=== PATIENT | female | born 1955 | race American Indian/Alaskan Native ===

== ENCOUNTER 2020-02-28 18:46 | Emergency (ER) | payer MEDICARE ==
--- NOTE | 2020-02-28 19:59 | Emergency Department Report ---
Blank Doc - Documentation Documentation: This is a 64-year-old female that presents with acute psychosis. Has been hav ing no sleep, hallucinations. Denies any SI/HI. Has not been taking any medications. This initial assessment/diagnostic orders/clinical plan/treatment(s) is/are subject to change based on patient's health status, clinical progression and re- assessment by fellow clinical providers in the ED. Further treatment and workup at subsequent clinical providers discretion. Patient/guardians urged not to elope from the ED as their condition may be serious if not clinically assessed and managed. Initial orders include: 1- Patient sent to MAIN ED for further evaluation and treatment 2- security operations analyst was notified to have patient be brought back [facility]. 3- RN was notified to keep patient as close range and observation until room available 4- Patient presents with substantial risk of imminent harm to self, appears to be so unable to care for his/her own physical health and safety as to create an imminently life-endangering crisis, and has committed/expressed life endangering crisis to self. Due to this and other complaints, patient is put on psych hold.
[2020-02-28 20:43] LABS: Hematocrit 37.1 % (30.3-42.9); Mean Corpuscular HGB Conc 32 % (30-34); Mean Corpuscular Volume 80 fl (79-97); Platelet Count 307 K/mm3 (140-440); Red Blood Count 4.64 M/mm3 (3.65-5.03); Red Cell Distribution Width 14.7 % (13.2-15.2)
[2020-02-28 20:57] LABS: BUN/Creatinine Ratio 20; Blood Urea Nitrogen 16 mg/dL (7-17); Calcium 9.8 mg/dL (8.4-10.2); Hemolysis Index 4
[2020-02-28 21:16] LABS: Total Cells Counted 100
[2020-02-28 21:17] LABS: Anisocytosis 1+; Hypochromasia 1+
[2020-02-28] MEDS ORDERED: diphenhydrAMINE 50 MG/ML VIAL IM STA (23:08)
[2020-02-28] MEDS: LORazepam 2 MG/ML VIAL IM PRN (23:19)
[2020-02-29] MEDS: HALOPERIDOL LACTATE 5 MG/1 ML INJ IM PRN ×2 (00:33→14:06)
--- NOTE | 2020-02-29 02:08 | Emergency Department Report ---
ED General Adult HPI - General Chief complaint: Psych Stated complaint: PHONG ANDERSON PUI?: No Time Seen by Provider: 02/28/20 19:58 Source: patient, RN notes reviewed Mode of arrival: Wheelchair Limitations: Other (Acute psychosis) - History of Present Illness Initial comments: The patient is a 64-year-old female. She appears to have a history of schizophrenia. She was reportedly brought to the hospital by her son for psychiatric decompensation. The patient herself is acutely psychotic, yelling and screaming nonsensically. She is not able to describe the qualitative nature of her symptoms, exacerbating, or relieving factors. As per her son, who reported this to nursing team, patient is out of medications, has not slept in 2 weeks, and has been hyperverbal. Patient acutely psychotic, not able to describe the qualitative nature of her symptoms, exacerbating, or relieving factors, or radiation thereof. Currently, not accompanied by friends or family at this time for additional information or collateral information. -: week(s) Quality: other Consistency: other Improves with: other Worsens with: other Associated Symptoms: other - Related Data Home Medications Medication Instructions Recorded Confirmed Last Taken Divalproex ER [DepaKOTE ER] 500 mg PO BID 02/29/20 03/02/20 Unknown Metoprolol Xl 25 mg PO DAILY 03/02/20 03/02/20 Unknown Allergies Allergy/AdvReac Type Severity Reaction Status Date / Time No Known Allergies Allergy Unverified 02/29/20 00:57 ED Review of Systems ROS: Stated complaint: PHONG ANDERSON Other details as noted in HPI Comment: Unobtainable due to pts medical conditions ED Past Medical Hx - Past Medical History Previous Medical History?: Yes Hx Psychiatric Treatment: Yes (Schizophrenia, BIPOLAR) - Medications Home Medications: Home Medications Medication Instructions Recorded Confirmed Last Taken Type Divalproex ER [DepaKOTE ER] 500 mg PO BID 02/29/20 03/02/20 Unknown History Metoprolol Xl 25 mg PO DAILY 03/02/20 03/02/20 Unknown History ED Physical Exam - General Limitations: Other (Patient acutely agitated, hyperverbal, nonsensical thought process, word salad.) General appearance: alert, anxious, obese - Head Head exam: Present: atraumatic, normocephalic - Eye Eye exam: Present: normal appearance, EOMI - ENT ENT exam: Present: normal exam, normal orophraynx, mucous membranes moist, normal external ear exam - Neck Neck exam: Present: normal inspection, full ROM. Absent: tenderness, me ningismus - Respiratory Respiratory exam: Present: normal lung sounds bilaterally. Absent: respiratory distress - Cardiovascular Cardiovascular Exam: Present: regular rate, normal rhythm, normal heart sounds. Absent: bradycardia, tachycardia, irregular rhythm, systolic murmur, diastolic murmur, rubs, gallop - GI/Abdominal GI/Abdominal exam: Present: soft. Absent: distended, tenderness, guarding, rebound, rigid, pulsatile mass - Extremities Exam Extremities exam: Present: normal inspection, full ROM, other (2+ pulses noted in the bilateral upper and lower extremities. There is no palpable cord. negative Homans sign. Muscular compartments are soft. The pelvis is stable.). Absent: pedal edema, calf tenderness - Back Exam Back exam: Present: normal inspection, full ROM. Absent: tenderness, CVA tenderness (R), CVA tenderness (L), paraspinal tenderness, vertebral tenderness - Neurological Exam Neurological exam: Present: other (The patient is awake. The patient is speaking rapidly and with a nonsensical thought structure. There is no facial droop. She is hyperverbal. She is moving 4 extremities spontaneously. A detailed neurologic examination is not possible secondary to acute psychosis at this time.) - Psychiatric Psychiatric exam: Present: agitated, anxious, manic - Skin Skin exam: Present: warm, dry, intact, normal color. Absent: rash ED Course Vital Signs 02/28/20 02/29/20 02/29/20 22:30 18:19 18:33 Temperature 98.9 F 97.6 F Pulse Rate 65 69 Respiratory 18 16 18 Rate Blood Pressure 139/69 130/102 [Left] O2 Sat by Pulse 97 100 Oximetry 02/29/20 02/29/20 03/01/20 20:00 20:05 01:00 Temperature 98.2 F 98.4 F Pulse Rate 78 80 Respiratory 18 18 20 Rate Blood Pressure 124/61 122/64 [Left] O2 Sat by Pulse 100 100 98 Oximetry 03/01/20 18:54 Temperature Pulse Rate 73 Respiratory 16 Rate Blood Pressure 156/96 [Left] O2 Sat by Pulse 97 Oximetry - Reevaluation(s) Reevaluation #1: 02/29/20 02:10 Differential diagnosis, including but not limited to: Acute psychosis, medical c learance for psychiatric placement Assessment and plan: 64-year-old female who is afebrile with reassuring vital signs, with 2 weeks of documented hyperverbal status, appears to be acutely psychotic at this time, obviously does not have the ability to care for self, nonsensical thought process. There is no sign of blunt head trauma. Her physical exam is unremarkable. Placed on hold, psychiatric consultation is requested, screening laboratory studies ordered, so far unremarkable, urinalysis is pending at this time. At this point time, the patient does not appear to have an immediate medical contraindication to psychiatric admission, evaluation, consultation and placement. CK reviewed and appreciated, renal function within normal limits, elevated CK does not meet definition for criteria for rhabdomyolysis at this time. Reevaluation #2: 02/29/20 05:58 Dr Tash Restrepo to follow up on ED Medical Decision Making - Lab Data Result diagrams: 02/28/20 20:16 02/28/20 20:16 Blood pressure: 168/58 Saturating 98% on room air Heart rate 88 bpm Respirations 20/min Temperature: 98.1 F Lab Results 02/28/20 02/28/20 02/28/20 Range/Units 20:16 20:16 20:16 WBC 7.5 (4.5-11.0) K/mm3 RBC 4.64 (3.65-5.03) M/mm3 Hgb 12.0 (10.1-14.3) gm/dl Hct 37.1 (30.3-42.9) % MCV 80 (79-97) fl MCH 26 L (28-32) pg MCHC 32 (30-34) % RDW 14.7 (13.2-15.2) % Plt Count 307 (140-440) K/mm3 Add Manual Diff Complete Total Counted 100 Seg Neuts % (Manual) 64.0 (40.0-70.0) % Band Neutrophils % 0 % Lymphocytes % (Manual) 23.0 (13.4-35.0) % Reactive Lymphs % (Man) 0 % Monocytes % (Manual) 11.0 H (0.0-7.3) % Eosinophils % (Manual) 1.0 (0.0-4.3) % Basophils % (Manual) 1.0 (0.0-1.8) % Metamyelocytes % 0 % Myelocytes % 0 % Promyelocytes % 0 % Blast Cells % 0 % Nucleated RBC % Not Reportable Seg Neutrophils # Man 4.8 (1.8-7.7) K/mm3 Band Neutrophils # 0.0 K/mm3 Lymphocytes # (Manual) 1.7 (1.2-5.4) K/mm3 Abs React Lymphs (Man) 0.0 K/mm3 Monocytes # (Manual) 0.8 (0.0-0.8) K/mm3 Eosinophils # (Manual) 0.1 (0.0-0.4) K/mm3 Basophils # (Manual) 0.1 (0.0-0.1) K/mm3 Metamyelocytes # 0.0 K/mm3 Myelocytes # 0.0 K/mm3 Promyelocytes # 0.0 K/mm3 Blast Cells # 0.0 K/mm3 WBC Morphology Not Reportable Hypersegmented Neuts Not Reportable Hyposegmented Neuts Not Reportable Hypogranular Neuts Not Reportable Smudge Cells Not Reportable Toxic Granulation Not Reportable Toxic Vacuolation Not Reportable Dohle Bodies Not Reportable Pelger-Huet Anomaly Not Reportable Zaida Rods Not Reportable Platelet Estimate Not Reportable Clumped Platelets Not Reportable Plt Clumps, EDTA Not Reportable Large Platelets Not Reportable Giant Platelets Not Reportable Platelet Satelliting Not Reportable Plt Morphology Comment Not Reportable RBC Morphology Not Reportable Dimorphic RBCs Not Reportable Polychromasia Not Reportable Hypochromasia 1+ Poikilocytosis Not Reportable Anisocytosis 1+ Microcytosis Not Reportable Macrocytosis Not Reportable Spherocytes Not Reportable Pappenheimer Bodies Not Reportable Sickle Cells Not Reportable Target Cells Not Reportable Tear Drop Cells Not Reportable Ovalocytes Not Reportable Helmet Cells Not Reportable Schmitt-Gautier Bodies Not Reportable [place] Rings Not Reportable [place]green Cells Not Reportable Bite Cells Not Reportable Crenated Cell Not Reportable Elliptocytes Not Reportable Acanthocytes (Spur) Not Reportable Rouleaux Not Reportable Hemoglobin C Crystals Not Reportable Schistocytes Not Reportable Malaria parasites Not Reportable Imtiaz Bodies Not Reportable Hem Pathologist Commnt No Sodium 132 L (137-145) mmol/L Potassium 5.1 H (3.6-5.0) mmol/L Chloride 94.2 L (98-107) mmol/L Carbon Dioxide 25 (22-30) mmol/L Anion Gap 18 mmol/L BUN 16 (7-17) mg/dL Creatinine 0.8 (0.6-1.2) mg/dL Estimated GFR > 60 ml/min BUN/Creatinine Ratio 20 % Glucose 116 H (65-100) mg/dL Calcium 9.8 (8.4-10.2) mg/dL Magnesium (1.7-2.3) mg/dL Total Creatine Kinase (30-135) units/L Salicylates < 0.3 L (2.8-20.0) mg/dL Acetaminophen (10.0-30.0) ug/mL Plasma/Serum Alcohol (0-0.07) % 02/28/20 02/28/20 02/29/20 Range/Units 20:16 20:16 Unknown WBC (4.5-11.0) K/mm3 RBC (3.65-5.03) M/mm3 Hgb (10.1-14.3) gm/dl Hct (30.3-42.9) % MCV (79-97) fl MCH (28-32) pg MCHC (30-34) % RDW (13.2-15.2) % Plt Count (140-440) K/mm3 Add Manual Diff Total Counted Seg Neuts % (Manual) (40.0-70.0) % Band Neutrophils % % Lymphocytes % (Manual) (13.4-35.0) % Reactive Lymphs % (Man) % Monocytes % (Manual) (0.0-7.3) % Eosinophils % (Manual) (0.0-4.3) % Basophils % (Manual) (0.0-1.8) % Metamyelocytes % % Myelocytes % % Promyelocytes % % Blast Cells % % Nucleated RBC % Seg Neutrophils # Man (1.8-7.7) K/mm3 Band Neutrophils # K/mm3 Lymphocytes # (Manual) (1.2-5.4) K/mm3 Abs React Lymphs (Man) K/mm3 Monocytes # (Manual) (0.0-0.8) K/mm3 Eosinophils # (Manual) (0.0-0.4) K/mm3 Basophils # (Manual) (0.0-0.1) K/mm3 Metamyelocytes # K/mm3 Myelocytes # K/mm3 Promyelocytes # K/mm3 Blast Cells # K/mm3 WBC Morphology Hypersegmented Neuts Hyposegmented Neuts Hypogranular Neuts Smudge Cells Toxic Granulation Toxic Vacuolation Dohle Bodies Pelger-Huet Anomaly Zaida Rods Platelet Estimate Clumped Platelets Plt Clumps, EDTA Large Platelets Giant Platelets Platelet Satelliting Plt Morphology Comment RBC Morphology Dimorphic RBCs Polychromasia Hypochromasia Poikilocytosis Anisocytosis Microcytosis Macrocytosis Spherocytes Pappenheimer Bodies Sickle Cells Target Cells Tear Drop Cells Ovalocytes Helmet Cells Schmitt-Gautier Bodies [place] Rings Heather Cells Bite Cells Crenated Cell Elliptocytes Acanthocytes (Spur) Rouleaux Hemoglobin C Crystals Schistocytes Malaria parasites Imtiaz Bodies Hem Pathologist Commnt Sodium (137-145) mmol/L Potassium (3.6-5.0) mmol/L Chloride (98-107) mmol/L Carbon Dioxide (22-30) mmol/L Anion Gap mmol/L BUN (7-17) mg/dL Creatinine (0.6-1.2) mg/dL Estimated GFR ml/min BUN/Creatinine Ratio % Glucose (65-100) mg/dL Calcium (8.4-10.2) mg/dL Magnesium 2.10 (1.7-2.3) mg/dL Total Creatine Kinase 413 H (30-135) units/L Salicylates (2.8-20.0) mg/dL Acetaminophen 5.0 L (10.0-30.0) ug/mL Plasma/Serum Alcohol < 0.01 (0-0.07) % Vital Signs 02/29/20 02:11 Temperature 98.9 F Pulse Rate 65 Respiratory 18 Rate Blood Pressure 139/69 [Left] O2 Sat by Pulse 97 Oximetry Critical care attestation.: If time is entered above; I have spent that time in minutes in the direct care of this critically ill patient, excluding procedure time. ED Disposition Clinical Impression: Psychosis, Medical clearance for psychiatric admission Disposition: [id number]/TX-[id number] PSY HOSP/PSY UNIT Is pt being admited?: No Does the pt Need Aspirin: No Condition: Stable Referrals: PRIMARY CARE, [Primary Care Provider] - 3-5 Days
[2020-02-29 06:57] LABS: Bilirubin,Urine NEG (Negative); Blood,Urine NEG (Negative); Color,Urine Yellow (Yellow); Mucus,Urine FEW /HPF; Protein,Urine <15 mg/dL mg/dL (Negative); Urobilinogen,Urine < 2.0 mg/dL (<2.0); WBC,Urine < 1.0 /HPF (0.0-6.0)
[2020-02-29 07:12] LABS: Amphetamine Screen,Urine Negative; Benzodiazepines Screen,Urine Negative; Cannabinoid Screen,Urine Negative; Cocaine Screen,Urine Negative; Methadone Screen,Urine Negative; Opiate Screen,Urine Negative
[2020-02-29] MEDS: LORazepam 2 MG/ML VIAL IM PRN (14:06)
--- NOTE | 2020-03-01 10:21 | Consultation ---
History of Present Illness - Reason for Consult Consult date: 03/01/20 Reason for consult: MHA Requesting physician: VANESSA FLOREZ - Chief Complaint Chief complaint: Bizzare behavior - History of Present Psychiatric Illness Per ED provider: The patient is a 64-year-old female. She appears to have a history of schizophrenia. She was reportedly brought to the hospital by her son for psychiatric decompensation. The patient herself is acutely psychotic, yelling and screaming nonsensically. She is not able to describe the qualitative nature of her symptoms, exacerbating, or relieving factors. As per her son, who reported this to nursing team, patient is out of medications, has not slept in 2 weeks, and has been hyperverbal. Patient acutely psychotic, not able to describe the qualitative nature of her symptoms, exacerbating, or relieving factors, or radiation thereof. Currently, not accompanied by friends or family at this time for additional information or collateral information. Per MHA: Pt is a 64 yo AA female presenting to ED for MHE, as pt has been presenting with decompensation in level of functioning in home. During ax, pt presented as disorganized, with word salad speech and loud tone. Pt presents with poor insight and is unable to provide any details regarding triggers to admission. Pile Driver Operator Barge Mounted contacted pts son Alexx Barger at [phone]. Per son, he dispatched crisis team to home, and it was recommended for pt to come to ED for MHE. Son informed tie puller that pt has a dx of Schizoaffective Disorder and she has been compliant with medication. Per son, pt has been living with him since May. Prior to living with son, pt was residing with her sister in [place]. Son identified a decline in pts mental status starting 2 weeks ago. Per son, pt has not been sleeping and appetite has decreased. Son reported that pt has been talking loudly to herself and endorsing A/H. Son informed tie puller that pt used the bathroom on herself and that is abnormal for pt. Per son, pt has been exhibiting bizarre behaviors of turning lights on and off, and not turning off the sink water after running it. Pt has been endorsing paranoid delusions, as she has been saying that people are coming after her and stealing her items. No reports of SI/HI identified. Pt resides with adult son and can return to home once stabilized. PSYCH HPI Patient is a 64 year old Female who resides with son with Past Psychiatric history of Schizophrenia known to be compliant with home meds until recently about 2 weeks ago with a decline in mental states. Patient seen in ED room this AM, eating, alert but refused to acknowledge my presence, after eating pt then rubbed the butter on her face. Patient says Ramiro was killed but then made it, she told me to close her door because she does not understand how im able to just come and go. Patient was speaking very loudly, difficult to understand and exhibits word salad. PAST PSYCHIATRIC HISTORY Diagnoses: Schizophrenia Suicide attempts or Self-harm behavior: unknown Prior psychiatric hospitalizations: unknown Substance Abuse history: Previous psychiatric medications tried: Yes Outpatient treatment: unknown PAST MEDICAL HISTORY: Family Psychiatric History: None reported or documented SOCIAL HISTORY Marital Status: Living Arrangements: With Son Employment Status: disabled Access to guns/weapons: none reported Education: History of Abuse: Legal History: REVIEW OF SYSTEMS ROS cannot be reliably obtained from the patient due to her confusion and somnolence. MENTAL STATUS EXAMINATION General Appearance and Behavior: Age appropriate, good hygiene, wearing appropriate clothes, lying in bed,poor eye contact, uncooperative irritable with questioning. Cooperation: Withdrawn, Isolative Psychomotor Behavior: unremarkable and within normal limits Mood: unknown Affect and affective range: dysthymic Thought Process:, Illogical,Fragmented and Loose associations Thought Content: Illogical Speech: difficulty to understand, abnormalities in production of speech, confused Intellectual Functioning: Average Suicidal Ideation: unknown Homicidal Ideation: unknown Impulse Control: Impaired Insight and Judgment: Impaired Memory: impaired Attention: impaired Orientation: Alert RECOMMENDATIONS MEDICATIONS: Risks, benefits and alternatives of medications discussed with the patient, questions answered and consent obtained from patient. PSYCHOTHERAPY: Supportive psychotherapy provided MEDICAL: Per primary team DELIRIUM PRECAUTIONS: Please re-orient patient frequently, keep lights on during the day, and minimize benzodiazepines and opiates as these medications could worsen patient's confusion. BIZTALK DEVELOPER: per medical team DISPOSITION: [facility] psych admission recommended LEGAL STATUS: 1013 FOLLOW-UP: Will follow Thank you for the consult. Please contact with any questions and/or concerns. Medications and Allergies Allergies Allergy/AdvReac Type Severity Reaction Status Date / Time No Known Allergies Allergy Unverified 02/29/20 00:57 Home Medications Medication Instructions Recorded Confirmed Last Taken Type Divalproex ER [DepaKOTE ER] 500 mg PO BID 02/29/20 02/29/20 Unknown History Metoprolol [Lopressor] 25 mg PO DAILY 02/29/20 02/29/20 Unknown History Active Meds: Active Medications Haloperidol Lactate (Haldol) 5 mg IM Q6HR PRN PRN Reason: Agitation Last Admin: 02/29/20 14:06 Dose: 5 mg Documented by: Lorazepam (Ativan) 2 mg IM Q4HR PRN PRN Reason: Agitation Last Admin: 02/29/20 14:06 Dose: 2 mg Documented by: Mental Status Exam - Vital signs Last Vital Signs Temp 98.4 F 03/01/20 01:00 Pulse 80 03/01/20 01:00 Resp 20 03/01/20 01:00 BP 122/64 03/01/20 01:00 Pulse Ox 98 03/01/20 01:00 Results Result Diagrams: 02/28/20 20:16 02/28/20 20:16 All other labs normal.
[2020-03-01 18:55] VITALS: BP 156/96
[2020-03-01] MEDS: LORazepam 2 MG/ML VIAL IM PRN (20:56)
[2020-03-01] MEDS: HALOPERIDOL LACTATE 5 MG/1 ML INJ IM PRN (20:56)
== END 2020-03-01 22:56 ==
LOC: EEVIPCON 18:46 → ED 18:46
DX: F28 Other psychotic disorder not due to a substance or known physiological condition (principal); F20.89 Other schizophrenia; F31.9 Bipolar disorder, unspecified; Z79.899 Other long term (current) drug therapy; Z03.818 Encounter for observation for suspected exposure to other biological agents ruled out
CPT/HCPCS: 36415; 80048; 80307; 81001; 82550; 83735; 85007; 85025; 96372; 99285; J1200; J1630; J2060; U0003; 80320; G0480